=== PATIENT | male | born 1995 | race Caucasian/White ===

== ENCOUNTER 2025-05-17 03:36 | Emergency (ER) | payer OTHER, SELFPAY ==
[2025-05-17 03:38] VITALS: BMI 31.6
[2025-05-17 03:48] VITALS: BP 122/80; PULSE 80; RESP 17; TEMP 37.1; O2SAT 96
--- NOTE | 2025-05-17 03:54 | EDNOTE_ITS ---
ED Animal Bite RME/HPI General Chief Complaint: Animal Bite Stated Complaint: DOG BITE RIGHT FOREARM Time Seen by Provider: 05/17/25 03:48 Arrival date/time: 05/17/25 03:36 30M with no significant PMH presents to ED with dog bite on R forearm. 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 Patient and dog are UTD on tdap. Limitations: no limitations Related Data Previous Rx's ?Medication ?Instructions ?Recorded amoxicillin 875 mg-potassium 1 tab PO BID 7 days #14 t abs 05/17/25 clavulanate 125 mg tablet Allergies Allergy/AdvReac Type Severity Reaction Status Date / Time No Known Allergies Allergy Verified 05/17/25 03:40 Review of Systems Review of Systems Systems Reviewed: All systems reviewed, normal except as documented Integumentary/Breasts Skin/Breast: Reports as per HPI and Reports skin pain Past Medical History Social History SMOKING STATUS: Never smoker ED Exam General Limitations: Present no limitations General appearance: Present alert and in no apparent distress Head Head exam: Present atraumatic Neck Neck exam: Present normal inspection, full ROM and trachea midline Chest Chest inspection: Present normal inspection and symmetric chest wall rise Extremities Exam Extremities exam: Present full ROM Expanded Upper Extremity Exam Forearm/Wrist exam: Present full ROM and laceration (R 1 cm puncture wound) Neurological Exam Neurological exam: Present alert and oriented X3 Psychiatric Psychiatric exam: Present normal affect and normal mood Skin Skin exam: Present warm, dry, intact and normal color Course Quality Measures none Orders Category Date Time Status Wound Care NOW Care 05/17/25 03:49 Active Amoxicillin/Pot Clav 875 [Augmentin 875] Med 05/17/25 03:49 Once 1 tab PO X1 ONE Vital Signs Vital signs: Vital Signs Temperature 98.7 F 05/17/25 03:48 Pulse Rate 80 05/17/25 03:48 Respiratory Rate 17 05/17/25 03:48 Blood Pressure 122/80 05/17/25 03:48 Pulse Oximetry (%) 96 05/17/25 03:48 Oxygen Delivery Method Room Air 05/17/25 03:48 O2 at 96% on RA and WNLs Animal Bite MDM Narrative MDM Narrative:: 30M with no significant PMH presents to ED with dog bite on R forearm. 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 Patient and dog are UTD on tdap. Physical exam reveals 1 cm lac/puncture wound on R forearm. Patient is afebrile, calm, and alert. Wound cleaned/irrigated and partially closed with steri-strip. ABX given. Patient data External records reviewed:: None Clinical information provided by:: patient Social determinants that could affect healthcare access:: none Patient has the following chronic illnesses:: none How is presenting disease/condition affected by chronic disease/condition?: no chronic disease Evaluation data The following diagnostics were reviewed and interpreted by me:: other (specify) (none) Lab and/or radiology exams considered but not ordered:: not ordered Interpretation Summary: n/a Medications / Prescriptions Medications or Prescriptions considered but not ordered:: ordered Medication administrations:: Medication Administration History Amoxicillin/Clavulanate Potassium (Amoxicillin/Pot Clav 875 Tablet) 1 tab PO X1 ONE Stop: 05/17/25 03:50 above Consultations Consultation(s) initiated? (list below): No Diagnosis Differential diagnosis animal bite: bite by animal, dog bite and rabies contact Most likely diagnosis given after review of the tests above:: dog bite Admission Indicated Admission indicated?: not indicated Admission Request Was there a request for admission?: No Disposition Plan Disposition Plan: Discharge Discharge Attestation Discharge Attestation: The patient and all family members were given an opportunity to ask questions and understood the discharge instructions. Discharge instructions specifically effects, indications for sooner follow up or return to the emergency department, and the expected course of current diagnosis. Patient condition: Stable Discharge Plan Plan Patient Disposition: HOME (Self Care) Discharge Disposition comment: Stable Prescriptions/Referrals Prescriptions/Med Rec: New amoxicillin-pot clavulanate 875-125 mg tablet 1 tab PO BID 7 Days Qty: 14 0RF Problem List Clinical Impression: Dog bite Patient/Caregiver Discharge Instructions Education Materials: ED Dog Bite Additional Instructions: Please follow-up with PCP within 24-48 hours and return immediately if symptoms worsen. Print Language: Kosovan Stand Alone Forms: Patient Portal Info Letter NAWAF/TRISTIAN Supervising Physician NAWAF/TRISTIAN Supervising Physician: Dr. Lennon
[2025-05-17] MEDS: AMOXICILLIN/POT CLAV 875 TABLET 1 TAB PO (03:58)
== END 2025-05-17 04:03 | disposition home or self-care (01) ==
LOC: SERX 04:29
PROVIDERS: Emergency Provider Emergency Medicine
DX: S51.831A Puncture wound without foreign body of right forearm, initial encounter (principal); W54.0XXA Bitten by dog, initial encounter
CPT/HCPCS: 99284; A9270